=== PATIENT | male | born 1960 | race Caucasian/White ===

== ENCOUNTER → 2018-09-10 15:56 | Outpatient (CLI) | payer BC, SELFPAY ==
--- NOTE | 2018-09-10 15:59 | DI.RAD.S_ITS ---
PROCEDURE: XR LUMBAR SPINE 2-3V INDICATIONS: Low back pain TECHNIQUE: 3 views of the lumbar spine were acquired. COMPARISON: None. FINDINGS: Bones: 5 [id number] vertebrae are present. There is mild scoliosis. Severe degenerative disease is present throughout lumbar spine. There is facet arthropathy at L3-L4, L4-L5 and L5-S1 and moderate facet arthropathy at L2-L3. No vertebral body compression fractures. No suspicious bony lesions. 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 Soft tissues: Overlying bowel gas pattern is normal. No suspicious soft tissue calcifications. IMPRESSION: Scoliosis and severe degenerative changes in lumbar spine. Dictated by: Phani Madison M.D. on 09/10/2018 at 17:16 Approved by: Phani Madison M.D. on 09/10/2018 at 17:18
== END ==
PROVIDERS: PCP Family Medicine; Visit Provider Family Medicine
DX: M54.5 Low back pain (principal); M47.816 Spondylosis without myelopathy or radiculopathy, lumbar region; M47.817 Spondylosis without myelopathy or radiculopathy, lumbosacral region; M41.86 Other forms of scoliosis, lumbar region; M16.0 Bilateral primary osteoarthritis of hip
CPT/HCPCS: 72100

== ENCOUNTER → 2023-03-19 10:24 | Outpatient (CLI) | payer BC, SELFPAY ==
[2023-03-19 12:18] LABS: Prostate Specific Antigen 1.52 ng/mL (0.10-4.00)
== END ==
PROVIDERS: PCP Student in an Organized Health Care Education/Training Program; Referring Provider Specialist; Visit Provider Specialist
DX: N40.1 Benign prostatic hyperplasia with lower urinary tract symptoms (principal); N13.8 Other obstructive and reflux uropathy
CPT/HCPCS: 36415; 84153